=== PATIENT | male | born 1945 | race Caucasian/White ===

== ENCOUNTER → 2016-09-19 | Outpatient (CLI) | payer MEDICARE, BC ==
[2016-09-19 12:14] LABS: APPEARANCE,URINE CLEAR; BILIRUBIN,URINE NEGATIVE (NEGATIVE); GLUCOSE, URINE NEGATIVE (NEGATIVE); KETONES,URINE NEGATIVE (NEGATIVE); LEUKOCYTE ESTERASE,URINE NEGATIVE (NEGATIVE); NITRITE,URINE NEGATIVE (NEGATIVE); PROTEIN,URINE 30 mg/dL (NEGATIVE); URINE SPECIFIC GRAVITY 1.016; UROBILINOGEN,URINE NEGATIVE mg/dL (<2.0)
[2016-09-19 12:25] LABS: ANION GAP 15 (5-19); BLOOD UREA NITROGEN 21 mg/dL (7-20); CALCIUM 9.4 mg/dL (8.4-10.2); CARBON DIOXIDE 25 mmol/L (22-30); CHLORIDE 103 mmol/L (98-107); CREATININE RESULT 1.23 mg/dL (0.52-1.25); GLUCOSE 91 mg/dL (75-110); POTASSIUM 4.5 mmol/L (3.6-5.0); SODIUM 142.6 mmol/L (137-145)
== END ==
LOC: OD 11:31
PROVIDERS: ATTEND Family Medicine
DX: N17.9 Acute kidney failure, unspecified (principal)
CPT/HCPCS: 36415; 80048; 81001

== ENCOUNTER → 2017-01-09 | Outpatient (CLI) | payer MEDICARE, BC | LOC: RAD 09:09 | PROVIDERS: ATTEND Family Medicine | DX: N18.9 Chronic kidney disease, unspecified (principal) | CPT/HCPCS: 93975 ==

== ENCOUNTER → 2017-06-04 | Outpatient (CLI) | payer MEDICARE, BC ==
--- NOTE | 2017-06-04 09:57 | RADIOLOGY REPORT (SQ) ---
EXAM DESCRIPTION: CT ABD/PELVIS WITH IV ORAL COMPLETED DATE/TIME: 06/04/2017 8:50 am REASON FOR STUDY: OTHER SPECIFIED DISORDERS OF KIDNEY N28.89 OTHER SPECIFIED DISORDERS OF KIDNEY AN D URETER COMPARISON: 01/09/2017 renal ultrasound. TECHNIQUE: CT scan of the abdomen and pelvis performed with intravenous contrast, and without oral c ontrast. Contrasted imaging performed helical scanning technique and dynamic intravenous contrast inj ection. Images reviewed with lung, soft tissue, and bone windows. Reconstructed coronal and sagittal MPR images reviewed. Delayed images for evaluation of the urinary system also acquired. All images st ored on PACS. All CT scanners at this facility use dose modulation, iterative reconstruction, and/or weight based d osing when appropriate to reduce radiation dose to as low as reasonably achievable (ALARA). [facility]: Dose Right [facility]: CareDose [facility]: Dose Right [facility]: Teradose 4D [facility]: [employer] CONTRAST TYPE AND DOSE: contrast/concentration: Isovue 370.00 mg/ml; Total Contrast Delivered: 100.0 ml; Total Saline Delivered: 72.0 ml RENAL FUNCTION: GFR > 60. RADIATION DOSE: Up-to-date CT equipment and radiation dose reduction techniques were employed. CTDIv ol: 16.2 - 17.6 mGy. DLP: 1843 mGy-cm.. LIMITATIONS: Artifact related to bilateral hip replacements limits evaluation of the inferior pelvis . FINDINGS: LOWER CHEST: No significant findings. No nodules or infiltrates. LIVER: Normal size. No masses. No dilated ducts. SPLEEN: Normal size. No focal lesions. PANCREAS: No masses. No significant calcifications. No adjacent inflammation or peripancreatic fluid collections. Pancreatic duct not dilated. GALLBLADDER: No identified stones by CT criteria. No inflammatory changes to suggest cholecystitis. ADRENAL GLANDS: No significant masses or asymmetry. RIGHT KIDNEY AND URETER: No solid masses. No significant calcification. No hydronephrosis or hydroure ter. LEFT KIDNEY AND URETER: No evidence of upper pole solid mass. Findings on recent ultrasound may be a rtifact therefore. There is a small cyst in the lower pole without suspicious features. AORTA AND VESSELS: Normal caliber aorta. 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 Supe rior mesenteric artery patent. Renal arteries patent. No venous clot detected. RETROPERITONEUM: No retroperitoneal adenopathy, hemorrhage or masses. BOWEL AND PERITONEAL CAVITY: Sigmoid diverticulosis. No active inflammatory changes or wall thickeni ng, however. No ascites or abnormal gas. No dilated loops or gross mass. APPENDIX: Normal. PELVIS: Bilateral hip replacements with associated streak artifact obscuring the inferior bladder and pelvis. Allowing for this, bladder unremarkable. ABDOMINAL WALL: No masses. No hernias. BONES: Osteopenia. Postoperative and degenerative changes. OTHER: No other significant finding. IMPRESSION: 1. No left renal mass detected beyond a lower pole simple appearing cyst. No urinary ob struction. 2. 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 TECHNICAL DOCUMENTATION: JOB ID: [id number] Quality ID # [id number]: Final reports with documentation of one or more dose reduction techniques (e.g., Au tomated exposure control, adjustment of the mA and/or kV according to patient size, use of iterative reconstruction technique) 2010 [employer]- All Rights Reserved
== END ==
LOC: RAD 08:06
PROVIDERS: ATTEND Family Medicine
DX: N28.89 Other specified disorders of kidney and ureter (principal)
CPT/HCPCS: 74177; 82565

== ENCOUNTER 2018-06-14 13:04 | Emergency (ER) | payer MEDICARE, BC ==
--- NOTE | 2018-06-14 13:26 | ER Document Report ---
ED General - General Chief Complaint: Passed Out Prior to Arrival Stated Complaint: FALL HEAD INJURY Time Seen by Provider: 06/14/18 13:10 Mode of Arrival: Stretcher TRAVEL OUTSIDE OF THE [place] IN LAST 30 DAYS: No - HPI Patient complains to provider of: Syncope Onset: Other - This 73-year-old man has a history of achalasia for which she has been evaluated by black jack dealer, he is developed now recurrent lightheadedness and dizziness associated with swallowing recurrently and was seen by his black jack dealer as recently as 1 week prior and underwent endoscopy, was told that his lightheadedness has nothing to do with his swallowing. Today he ate something had difficulty swallowing at which time he became lightheaded and subsequently passed out hitting his head and hands on the ground, on arrival EMS noted that his heart rate was found to be 24 but appeared to be a narrow complex sinus bradycardia. He was given atropine which improved his symptoms. Since that time he complains of a headache and pain in the hands but no chest pain shortness of breath or other symptoms. - Related Data Allergies/Adverse Reactions: No Known Allergies Allergy (Unverified 06/14/18 14:17) Past Medical History - General Information source: Patient - Social History Smoking Status: Former Smoker Family History: None - Past Medical History Cardiac Medical History: Reports: Hx Hypertension Pulmonary Medical History: Reports: Hx Bronchitis GI Medical History: Reports: Hx Gastroesophageal Reflux Disease Past Surgical History: Reports: Hx Tonsillectomy Review of Systems - Review of Systems -: Yes All other systems reviewed and negative Physical Exam - Vital signs Vitals: Resp 12 06/14/18 13:11 - General General appearance: Appears well In distress: None - HEENT Head: Other - There is a abrasion over the right forehead, some bleeding from the right naris, Eyes: Normal Conjunctiva: Normal Cornea: Normal Eyelashes: Normal Pupils: PERRL Corrective lenses worn: No Ears: Normal External canal: Normal Tympanic membrane: Normal Sinus: Normal Nasal: Bloody discharge Mouth/Lips: Normal, Other - The tongue demonstrates bruising Mucous membranes: Normal Neck: Other - Tenderness over C5-C6 - Respiratory Respiratory status: No respiratory distress Chest status: Nontender Breath sounds: Normal Chest palpation: Normal - Cardiovascular Rhythm: Regular Heart sounds: Normal auscultation Murmur: No - Abdominal Inspection: Normal Distension: No distension Tenderness: Nontender Organomegaly: No organomegaly - Back Back: Normal - Extremities General upper extremity: Normal inspection, Nontender, Normal strength, Normal temperature General lower extremity: Normal inspection, Nontender, Normal strength, Normal temperature - Neurological Neuro grossly intact: Yes Cognition: Normal Orientation: AAOx4 [place] Coma Scale Verbal: Oriented [place] Coma Scale Motor: Obeys Commands Speech: Normal Cranial nerves: Normal Motor strength normal: LUE, RUE, LLE, RLE - Psychological Associated symptoms: Normal affect Course - Re-evaluation Re-evalutation: 06/14/18 15:00 73-year-old male presents for evaluation and syncope. This patient is 73 years old, has had recurrent episodes of lightheadedness every time he feels something stuck in his throat. Upon EMS arrival after he had syncopized at home he was noted to have a heart rate of 24 with a narrow complex and sinus beats. He responded to atropine and his heart rate improved to 70. He had fallen and hit his face as well as both of his hands. He has had this recurrently in the past but is uncertain what the causes. Examination currently is normal blood pressure as well as heart rate, he does have bruising of the hands as well as face and neck. We will obtain CT of the head cervical spine and bilateral hands. Administered fentanyl for analgesia to this patient, after administration of fentanyl this patient had a substantial drop in his heart rate to the 35 range, during that time however he remained appropriate, did not lose consciousness, had no chest pain, and his blood pressure remained greater than 130. Administered atropine a second 0.5 mg dose. , The patient's heart rate responded again improving to the 70s. Repeated this patient's EKG as he had again become bradycardic, he continues to be in sinus rhythm without any obvious ST segment changes. Patient is asymptomatic at this time from a cardiac standpoint, he feels normal. Have contacted [facility] in relation of this patient, they agreed to evaluate this patient, will accept him to a telemetry cardiology bed. We will continue to monitor in emergency department until this patient is able to be transported appropriately to [facility]. Updated the patient on the current course. - Vital Signs Vital signs: Temp Pulse Resp BP Pulse Ox 97.7 F 18 173/82 H 97 06/14/18 16:33 06/14/18 16:33 06/14/18 16:33 06/14/18 16:33 - Laboratory Result Diagrams: 06/14/18 13:15 06/14/18 13:15 Laboratory results interpreted by me: 06/14/18 13:15 BUN 21 H Creatinine 1.29 H Est GFR (Non-Af Amer) 55 L Glucose 131 H ALT 16 L Critical Care Note - Critical Care Note Total time excluding time spent on procedures (mins): 30 Discharge - Discharge Clinical Impression: Bradycardia Syncope Qualifiers: Syncope type: unspecified Qualified Code(s): R55 - Syncope and collapse Hand pain Qualifiers: Laterality: bilateral Qualified Code(s): M79.641 - Pain in right hand; M79.642 - Pain in left hand; M79.642 - Pain in left hand Dysphagia Qualifiers: Dysphagia type: unspecified Qualified Code(s): R13.10 - Dysphagia, unspecified Condition: Stable Disposition: [facility] Referrals: ROCÍO LUQUE MD [NO LOCAL MD] - Follow up as needed
[2018-06-14 13:35] LABS: ABSOLUTE EOSINOPHILS # (AUTO) 0.1 10^3/uL (0.0-0.6); ABSOLUTE LYMPHOCYTES (AUTO) 1.8 10^3/uL (0.5-4.7); ABSOLUTE MONOCYTES (AUTO) 0.4 10^3/uL (0.1-1.4); ABSOLUTE NEUT (AUTO) 2.5 10^3/uL (1.7-8.2); BASOPHILS % (AUTO) 0.6 % (0-2); HEMATOCRIT 43.2 % (37.9-51.0); LYMPHOCYTES % (AUTO) 37.5 % (13-45); MEAN CORPUSCULAR HEMOGLOBIN 31.6 pg (27.0-33.4); MEAN CORPUSCULAR HGB CONC 34.6 g/dL (32.0-36.0); MEAN CORPUSCULAR VOLUME 91 fl (80-97); MONOCYTES % (AUTO) 8.2 % (3-13); PLATELET COUNT 185 10^3/uL (150-450); RED BLOOD COUNT 4.74 10^6/uL (4.35-5.55); RED CELL DISTRIBUTION WIDTH 13.2 % (11.5-14.0); SEGMENTED NEUTROPHILS % (AUTO) 51.7 % (42-78); TOTAL CELLS COUNTED % (AUTO) 100 %; WHITE BLOOD COUNT 4.8 10^3/uL (4.0-10.5)
[2018-06-14 13:48] LABS: ALANINE AMINOTRANSFERASE 16 U/L (21-72); ALBUMIN 4.2 g/dL (3.5-5.0); ALKALINE PHOSPHATASE 124 U/L (38-126); ANION GAP 11 (5-19); ASPARTATE AMINO TRANSFERASE 30 U/L (17-59); BILIRUBIN,DIRECT 0.2 mg/dL (0.0-0.4); BILIRUBIN,TOTAL 1.1 mg/dL (0.2-1.3); BLOOD UREA NITROGEN 21 mg/dL (7-20); CALCIUM 9.5 mg/dL (8.4-10.2); CARBON DIOXIDE 24 mmol/L (22-30); CHLORIDE 106 mmol/L (98-107); GLUCOSE 131 mg/dL (75-110); LIPASE 136.8 U/L (23-300); POTASSIUM 4.7 mmol/L (3.6-5.0); SODIUM 140.7 mmol/L (137-145); TOTAL PROTEIN 6.8 g/dL (6.3-8.2)
[2018-06-14 14:01] LABS: NT PRO BNP 82 pg/mL (5-900); TROPONIN I < 0.012 ng/mL
[2018-06-14] MEDS ORDERED: FENTANYL CITRATE INJ/PF 100 MCG/2 ML AMPUL IV PRN (14:05)
--- NOTE | 2018-06-14 14:14 | RADIOLOGY REPORT (SQ) ---
EXAM DESCRIPTION: CT HEAD WITHOUT COMPLETED DATE/TIME: 06/14/2018 1:47 pm REASON FOR STUDY: fall, loc, contusion right forehead COMPARISON: None. TECHNIQUE: Axial images acquired through the brain without intravenous contrast. Images reviewed wi th bone, brain and subdural windows. Additional sagittal and coronal reconstructions were generated. Images stored on PACS. All CT scanners at this facility use dose modulation, iterative reconstruction, and/or weight based d osing when appropriate to reduce radiation dose to as low as reasonably achievable (ALARA). [facility]: Dose Right [facility]: CareDose [facility]: Dose Right [facility]: Teradose 4D [facility]: Smart [email or web address] RADIATION DOSE: CT Rad equipment meets quality standard of care and radiation dose reduction techniq ues were employed. CTDIvol: 53.2 mGy. DLP: 964 mGy-cm. mGy. LIMITATIONS: None. FINDINGS: VENTRICLES: Normal size and contour. CEREBRUM: No masses. No hemorrhage. No midline shift. No evidence for acute infarction. Normal gra y/white matter differentiation. No areas of low density in the white matter. CEREBELLUM: No masses. No hemorrhage. No alteration of density. No evidence for acute infarction. EXTRAAXIAL SPACES: No fluid collections. No masses. ORBITS AND GLOBE: No intra- or extraconal masses. Normal contour of globe without masses. CALVARIUM: No fracture. PARANASAL SINUSES: No fluid or mucosal thickening. SOFT TISSUES: No mass or hematoma. OTHER: No other significant finding. IMPRESSION: No evidence of acute calvarial injury or intracranial hemorrhage. Normal CT appearance of the brain. EVIDENCE OF ACUTE STROKE: NO. COMMENT: Quality ID # 436: Final reports with documentation of one or more dose reduction techniques (e.g., Automated exposure control, adjustment of the mA and/or kV according to patient size, use of iterative reconstruction technique) TECHNICAL DOCUMENTATION: JOB ID: [id number] [employer]- All Rights Reserved Reading location - IP/workstation name: [email or web address]
--- NOTE | 2018-06-14 14:19 | RADIOLOGY REPORT (SQ) ---
EXAM DESCRIPTION: CT CERVICAL SPINE WITHOUT COMPLETED DATE/TIME: 06/14/2018 1:47 pm REASON FOR STUDY: fall, loc, contusion right forehead COMPARISON: None. TECHNIQUE: Axial images acquired through the cervical spine without intravenous contrast. Images re viewed with lung, soft tissue and bone windows. Reconstructed coronal and sagittal MPR images review ed. Images stored on PACS. All CT scanners at this facility use dose modulation, iterative reconstruction, and/or weight based d osing when appropriate to reduce radiation dose to as low as reasonably achievable (ALARA). [facility]: Dose Right [facility]: CareDose [facility]: Dose Right [facility]: Teradose 4D [facility]: [employer] RADIATION DOSE: CT Rad equipment meets quality standard of care and radiation dose reduction techniq ues were employed. CTDIvol: 20.7 mGy. DLP: 458 mGy-cm. mGy. LIMITATIONS: None. FINDINGS: ALIGNMENT: Relative straightening of the normal lordotic curvature on the basis of spondyl otic changes. MINERALIZATION: Normal. VERTEBRAL BODIES: No fractures or dislocation. Endplate sclerosis and subcortical cystic changes on the basis of spondylotic changes. DISCS: Multilevel disc space narrowing with osteophytes. FACETS, LATERAL MASSES, POSTERIOR ELEMENTS: Facet arthropathy. No fractures. No dislocation. No ac [place] findings. HARDWARE: None in the spine. VISUALIZED RIBS: No fractures. LUNG APICES AND SOFT TISSUES: No significant or acute findings. OTHER: No other significant finding. IMPRESSION: CHRONIC DEGENERATIVE CHANGES. NO ACUTE FINDINGS. TECHNICAL DOCUMENTATION: JOB ID: [id number] Quality ID # 436: Final reports with documentation of one or more dose reduction techniques (e.g., Au tomated exposure control, adjustment of the mA and/or kV according to patient size, use of iterative reconstruction technique) 2010 [email or web address]- All Rights Reserved Reading location - IP/workstation name: [email or web address]
[2018-06-14] MEDS ORDERED: ATROPINE SULFATE INJ 1 MG/1 ML VIAL IV ONE (14:23)
--- NOTE | 2018-06-14 14:24 | RADIOLOGY REPORT (SQ) ---
EXAM DESCRIPTION: HAND BILATERAL 3 VIEWS COMPLETED DATE/TIME: 06/14/2018 1:50 pm REASON FOR STUDY: fall, loc, contusion right forehead COMPARISON: None. EXAM PARAMETERS: NUMBER OF VIEWS: Three views right hand. Three views left hand. TECHNIQUE: AP, lateral and oblique radiographic images acquired of bilateral hands. LIMITATIONS: None. FINDINGS: RIGHT HAND: MINERALIZATION: Normal. BONES: No acute fracture or dislocation. No worrisome bone lesions. Diffuse degenerative changes are present, most significantly affecting the thumb metacarpal phalangeal joint and distal interphalangea l joints, noting flattening and sclerosis of the articular surfaces and prominent marginal osteophyte s. JOINTS: No erosions. No timmy-articular osteopenia. No chondrocalcinosis. SOFT TISSUES: No swelling. No calcifications. OTHER: Marked degenerative changes of the radiocarpal joint with complete loss of the radioscaphoid i nterval and widening of the scapholunate interval. LEFT HAND: MINERALIZATION: Normal. BONES: No acute fracture or dislocation. No worrisome bone lesions. Diffuse degenerative changes are present, most significantly affecting the thumb metacarpal phalangeal joint and distal interphalangea l joints, noting flattening and sclerosis of the articular surfaces and prominent marginal osteophyte s. JOINTS: No erosions. No timmy-articular osteopenia. No chondrocalcinosis. SOFT TISSUES: No swelling. No calcifications. OTHER: Moderate degenerative changes of the radiocarpal joint with narrowing of the radioscaphoid int erval. IMPRESSION: Marked degenerative changes of the hands and wrists as detailed above. No evidence of a cute osseous injury. TECHNICAL DOCUMENTATION: JOB ID: [id number] [employer]- All Rights Reserved Reading location - IP/workstation name: [email or web address]
--- NOTE | 2018-06-14 14:27 | RADIOLOGY REPORT (SQ) ---
EXAM DESCRIPTION: CHEST SINGLE VIEW COMPLETED DATE/TIME: 06/14/2018 1:50 pm REASON FOR STUDY: fall, loc, contusion right forehead COMPARISON: 06/29/2013 EXAM PARAMETERS: NUMBER OF VIEWS: One view. TECHNIQUE: Single frontal radiographic view of the chest acquired. RADIATION DOSE: NA LIMITATIONS: None. FINDINGS: LUNGS AND PLEURA: No opacities, masses or pneumothorax. No pleural effusion. MEDIASTINUM AND HILAR STRUCTURES: No masses. Contour normal. HEART AND VASCULAR STRUCTURES: Heart normal in size. Normal vasculature. BONES: No acute findings. HARDWARE: None in the chest. OTHER: No other significant finding. IMPRESSION: NO ACUTE RADIOGRAPHIC FINDING IN THE CHEST. TECHNICAL DOCUMENTATION: JOB ID: [id number] [employer]- All Rights Reserved Reading location - IP/workstation name: [email or web address]
[2018-06-14 17:00] VITALS: BP 173/82
--- NOTE | 2018-06-14 21:45 | EKG REPORT ---
SEVERITY:- ABNORMAL ECG - SINUS RHYTHM FIRST DEGREE AV BLOCK BORDERLINE LEFT AXIS DEVIATION : Confirmed by: Jadon Green MD 14-Jun-2018 21:44:59
--- NOTE | 2018-06-14 21:45 | EKG REPORT ---
SEVERITY:- ABNORMAL ECG - SINUS RHYTHM LEFT VENTRICULAR HYPERTROPHY NONSPECIFIC ST-T CHANGES- INFERIOR LEADS : Confirmed by: Jadon Green MD 14-Jun-2018 21:44:38
== END 2018-06-14 16:48 | disposition short-term general hospital (02) ==
LOC: ER 13:04
DX: S09.90XA Unspecified injury of head, initial encounter (principal); R00.1 Bradycardia, unspecified; R55 Syncope and collapse; M79.641 Pain in right hand; R13.10 Dysphagia, unspecified; R42 Dizziness and giddiness; W19.XXXA Unspecified fall, initial encounter; I10 Essential (primary) hypertension
CPT/HCPCS: 93005; 99291; 96374; 96375; 36415; 83690; 85025; 80053; 84484; 83880; 71045; 73130; 70450; 72125; 93010; J0461; J3010

== ENCOUNTER → 2019-03-18 | Outpatient (CLI) | payer MEDICARE, BC ==
--- NOTE | 2019-03-18 09:32 | RADIOLOGY REPORT (SQ) ---
EXAM DESCRIPTION: BARIUM SWALLOW ESOPHAGUS COMPLETED DATE/TIME: 03/18/2019 8:26 am REASON FOR STUDY: DYSPHAGIA (R13.12) R13.12 DYSPHAGIA, OROPHARYNGEAL PHASE COMPARISON: None. TECHNIQUE: Under fluoroscopic guidance, patient ingested effervescent granules followed by thick and thin barium. Fluoroscopic spot images and routine radiographic images acquired and stored on PACS. 12 MM BARIUM TABLET GIVEN: Yes. Delay in passage approximately 3 cm proximal to the GE junction. LIMITATIONS: None. FLUOROSCOPY TIME: FLUORO TIME: 2 minutes 2 seconds of fluoroscopy was used. 15 images saved to PACS. FINDINGS: NEUROMUSCULAR COORDINATION OF SWALLOW: Normal. No aspiration. Cricopharyngeal hypertrophy . ESOPHAGEAL MOTILITY: Slow primary peristalsis with tertiary contractions and spasm of the distal esop hagus. ESOPHAGEAL MUCOSA: Distal esophageal stricture approximately 3 cm superior to the GE junction with el ongated narrowing of the distal esophagus. This narrowing does delay passage of the 12 mm barium tab let. No ulcerations are identified. GASTRO-ESOPHAGEAL JUNCTION: Small sliding hiatal hernia. Mild reflux is seen. NON-GI TRACT STRUCTURES: No significant finding. OTHER: No other significant finding. IMPRESSION: 1. DISTAL ESOPHAGEAL STRICTURE APPROXIMATELY 3 CM FROM THE GE JUNCTION WITH ELONGATED N ARROWING OF THE DISTAL ESOPHAGUS, WORRISOME FOR PEPTIC STRICTURE ALTHOUGH NEOPLASM CANNOT BE ENTIRELY RULED OUT. RECOMMEND ENDOSCOPY FOR FURTHER EVALUATION. 2. ESOPHAGEAL DYSMOTILITY WITH TERTIARY CONTRACTIONS AND SPASM OF THE DISTAL PORTION OF THE ESOPHAGU S. 3. SMALL SLIDING HIATAL HERNIA WITH MILD GASTROESOPHAGEAL REFLUX. COMMENT: Quality ID 145: Final reports for procedures using fluoroscopy that document radiation exp osure indices, or exposure time and number of fluorographic images (if radiation exposure indices are not available) TECHNICAL DOCUMENTATION: JOB ID: [id number] [employer]- All Rights Reserved Reading location - IP/workstation name: [id number]
== END ==
LOC: RAD 07:44
PROVIDERS: ATTEND Internal Medicine Gastroenterology
DX: K22.2 Esophageal obstruction (principal); K44.9 Diaphragmatic hernia without obstruction or gangrene; K21.9 Gastro-esophageal reflux disease without esophagitis; K22.4 Dyskinesia of esophagus; R13.12 Dysphagia, oropharyngeal phase
CPT/HCPCS: 74220

== ENCOUNTER → 2019-05-07 | Day surgery (SDC) | payer MEDICARE, BC ==
[~2019-05-07] MED LIST: LIDOCAINE 2% JELLY 5 ML TUBE ONE
== END ==
LOC: END 07:34
PROVIDERS: ATTEND Internal Medicine Gastroenterology
DX: R13.10 Dysphagia, unspecified (principal)
CPT/HCPCS: 91010